=== PATIENT | female | born 1985 | race Caucasian/White ===

== ENCOUNTER 2018-03-09 07:54 | Inpatient (IN) | payer OTHER ==
[~2018-03-09] VITALS: Ht 152.4 cm; Wt 91.2 kg
[2018-03-09] VITALS (34 sets, daily range): BP systolic 107–173; BP diastolic 69–96
[2018-03-09] MEDS ORDERED: TYLENOL325 M2 PO (08:23)
[2018-03-09] MEDS ORDERED: PRENATAL TABLE1 EAC3 PO (08:23)
[2018-03-09] MEDS ORDERED: IRON18 MG PO (08:24)
[2018-03-09 09:50] LABS: BASOPHIL (%) 0.2 % (0-1); EOSINOPHIL (%) 0.2 % (0-5); HEMATOCRIT 29.6 % (36.0-46.0); HEMOGLOBIN 10.1 G/DL (11.9-15.5); IMMATURE GRANULOCYTE (%) 0.4 % (0.0-0.7); LYMPHOCYTE (%) 2.7 % (15-42); LYMPHOCYTE COUNT 0.2 K/uL (1.0-2.8); MCH 29.7 PG (29.0-34.0); MCHC 34.1 G/DL (30.0-36.0); MCV 87.1 FL (83-99); MONOCYTE (%) 3.9 % (3-12); MONOCYTE COUNT 0.3 K/uL (0-0.8); NEUTROPHIL (%) 92.6 % (45-76); NEUTROPHIL COUNT 7.8 K/uL (1.8-6.4); PLATELET COUNT 260 K/uL (156-360); RBC DIS.WIDTH-CV 14.3 % (11.8-14.6); RBC DIS.WIDTH-SD 45.1 % (39-53); WHITE BLOOD COUNT 8.4 K/uL (4.1-10.2)
[2018-03-09 09:58] LABS: AMPHETAMINE NEGATIVE (500 ng/mL); BARBITURATES NEGATIVE (200 ng/mL); BENZODIAZEPINES NEGATIVE (150 ng/mL); BUPRENORPHINE NEGATIVE (10 ng/mL); COCAINE NEGATIVE (150 ng/mL); METHADONE NEGATIVE (200 ng/mL); METHAMPHETAMINE NEGATIVE (500 ng/mL); OPIATES (MORPHINE) NEGATIVE (100 ng/mL); OXYCODONE NEGATIVE (100 ng/mL); PHENCYCLIDINE NEGATIVE (25 ng/mL); PROPOXYPHENE NEGATIVE (300 ng/mL); THC CANNABINOIDS NEGATIVE (50 ng/mL); TRICYCLIC ANTIDEPRESSANTS NEGATIVE (300 ng/mL)
[2018-03-10] VITALS (16 sets, daily range): BP systolic 123–140; BP diastolic 59–90
[2018-03-11] VITALS (8 sets, daily range): BP systolic 106–142; BP diastolic 65–86
[2018-03-11 06:11] LABS: BASOPHIL (%) 0.1 % (0-1); EOSINOPHIL (%) 0.1 % (0-5); HEMATOCRIT 19.6 % (36.0-46.0); IMMATURE GRANULOCYTE (%) 0.5 % (0.0-0.7); LYMPHOCYTE COUNT 0.2 K/uL (1.0-2.8); MCH 28.9 PG (29.0-34.0); MCHC 33.2 G/DL (30.0-36.0); MCV 87.1 FL (83-99); MONOCYTE COUNT 0.4 K/uL (0-0.8); NEUTROPHIL (%) 93.3 % (45-76); NEUTROPHIL COUNT 9.9 K/uL (1.8-6.4); PLATELET COUNT 198 K/uL (156-360); RBC DIS.WIDTH-CV 14.6 % (11.8-14.6); RBC DIS.WIDTH-SD 46.2 % (39-53); WHITE BLOOD COUNT 10.6 K/uL (4.1-10.2)
[2018-03-11 06:13] LABS: HEMOGLOBIN 6.5 G/DL (11.9-15.5); RED BLOOD COUNT 2.25 M/uL (3.80-5.20)
[2018-03-11 09:13] LABS: BASOPHIL (%) 0.1 % (0-1); EOSINOPHIL (%) 0.2 % (0-5); HEMATOCRIT 19.2 % (36.0-46.0); IMMATURE GRANULOCYTE (%) 0.7 % (0.0-0.7); LYMPHOCYTE (%) 2.6 % (15-42); LYMPHOCYTE COUNT 0.2 K/uL (1.0-2.8); MCH 29.7 PG (29.0-34.0); MCHC 34.4 G/DL (30.0-36.0); MCV 86.5 FL (83-99); MONOCYTE (%) 4.1 % (3-12); MONOCYTE COUNT 0.4 K/uL (0-0.8); NEUTROPHIL (%) 92.3 % (45-76); NEUTROPHIL COUNT 8.5 K/uL (1.8-6.4); PLATELET COUNT 194 K/uL (156-360); RBC DIS.WIDTH-CV 14.6 % (11.8-14.6); RBC DIS.WIDTH-SD 45.6 % (39-53); RED BLOOD COUNT 2.22 M/uL (3.80-5.20); WHITE BLOOD COUNT 9.2 K/uL (4.1-10.2)
[2018-03-11 09:14] LABS: HEMOGLOBIN 6.6 G/DL (11.9-15.5)
[2018-03-11 20:16] LABS: HEMATOCRIT 21.1 % (36.0-46.0); HEMOGLOBIN 7.1 G/DL (11.9-15.5); MCH 29.3 PG (29.0-34.0); MCHC 33.6 G/DL (30.0-36.0); MCV 87.2 FL (83-99); PLATELET COUNT 225 K/uL (156-360); RBC DIS.WIDTH-CV 14.6 % (11.8-14.6); RED BLOOD COUNT 2.42 M/uL (3.80-5.20); WHITE BLOOD COUNT 10.4 K/uL (4.1-10.2)
[2018-03-12] VITALS (11 sets, daily range): BP systolic 111–139; BP diastolic 65–78
[2018-03-12 06:18] LABS: BASOPHIL (%) 0.1 % (0-1); EOSINOPHIL (%) 0.2 % (0-5); IMMATURE GRANULOCYTE (%) 0.7 % (0.0-0.7); LYMPHOCYTE (%) 1.9 % (15-42); LYMPHOCYTE COUNT 0.2 K/uL (1.0-2.8); MCH 28.8 PG (29.0-34.0); MCHC 32.6 G/DL (30.0-36.0); MCV 88.4 FL (83-99); MONOCYTE (%) 3.1 % (3-12); MONOCYTE COUNT 0.3 K/uL (0-0.8); NEUTROPHIL COUNT 8.1 K/uL (1.8-6.4); PLATELET COUNT 226 K/uL (156-360); RBC DIS.WIDTH-CV 14.7 % (11.8-14.6); RBC DIS.WIDTH-SD 47.6 % (39-53); RED BLOOD COUNT 2.15 M/uL (3.80-5.20); WHITE BLOOD COUNT 8.6 K/uL (4.1-10.2)
[2018-03-12 06:26] LABS: HEMOGLOBIN 6.2 G/DL (11.9-15.5)
[2018-03-12 17:44] LABS: HEMATOCRIT 21.4 % (36.0-46.0); HEMOGLOBIN 7.1 G/DL (11.9-15.5); MCH 28.7 PG (29.0-34.0); MCHC 33.2 G/DL (30.0-36.0); MCV 86.6 FL (83-99); PLATELET COUNT 234 K/uL (156-360); RBC DIS.WIDTH-CV 14.6 % (11.8-14.6); RBC DIS.WIDTH-SD 46.6 % (39-53); RED BLOOD COUNT 2.47 M/uL (3.80-5.20)
[2018-03-13] VITALS (7 sets, daily range): BP systolic 109–142; BP diastolic 61–90
[2018-03-13 05:52] LABS: HEMATOCRIT 18.2 % (36.0-46.0); MCH 28.7 PG (29.0-34.0); MCV 87.1 FL (83-99); PLATELET COUNT 213 K/uL (156-360); RBC DIS.WIDTH-CV 14.7 % (11.8-14.6); RBC DIS.WIDTH-SD 47.2 % (39-53); RED BLOOD COUNT 2.09 M/uL (3.80-5.20); WHITE BLOOD COUNT 5.1 K/uL (4.1-10.2)
[2018-03-13 10:19] LABS: ALBUMIN 2.4 G/DL (3.2-4.8); ALKALINE PHOSPHATASE 112 IU/L (3-129); ALT (GPT) 12 IU/L (3-49); AST (GOT) 16 IU/L (2-34); CHLORIDE 106 MEQ/L (99-109); CREATININE 0.7 MG/DL (0.6-1.3); GFR ESTIMATE (CALCULATED) > 59 mL/min/; GLUCOSE 119 mg/dL (70-99); LACTATE DEHYDROGENASE 201 IU/L (20-246); POTASSIUM 3.7 MEQ/L (3.7-5.4); SODIUM 138 MEQ/L (136-147); TOTAL BILIRUBIN 0.2 MG/DL (0.0-1.0); TOTAL PROTEIN 4.7 G/DL (6.4-8.3); UREA NITROGEN (BUN) 8 mg/dL (9-23); URIC ACID 5.7 mg/dL (3.1-9.2)
[2018-03-13 12:04] LABS: UR CREATININE CONCENTRATION 44.5 MG/DL
[2018-03-13 20:00] LABS: HEMATOCRIT 26.3 % (36.0-46.0); MCH 28.8 PG (29.0-34.0); MCHC 33.1 G/DL (30.0-36.0); MCV 87.1 FL (83-99); PLATELET COUNT 229 K/uL (156-360); RBC DIS.WIDTH-CV 14.4 % (11.8-14.6); RBC DIS.WIDTH-SD 45.7 % (39-53); WHITE BLOOD COUNT 5.9 K/uL (4.1-10.2)
[2018-03-13 20:10] LABS: HEMOGLOBIN 8.7 G/DL (11.9-15.5); RED BLOOD COUNT 3.02 M/uL (3.80-5.20)
[2018-03-14] MEDS ORDERED: BACTRIM,SEPT1 TABLET PO (07:53)
[2018-03-14] MEDS ORDERED: FERROUS SULFAT325 MG PO (07:53)
[2018-03-14] MEDS ORDERED: DOCUSATE SODIU100 MG PO (07:53)
[2018-03-14] MEDS ORDERED: ENDOCET 5-3251 EACH PO (07:53)
[2018-03-14] MEDS ORDERED: IBUPROFEN800 MG PO (07:53)
[2018-03-14 08:05] VITALS: BP 142/88
[2018-03-14 08:13] VITALS: BP 139/84
[2018-03-14 09:29] LABS: BASOPHIL (%) 0.2 % (0-1); EOSINOPHIL (%) 1.3 % (0-5); EOSINOPHIL COUNT 0.1 K/uL (0-0.3); HEMOGLOBIN 8.9 G/DL (11.9-15.5); IMMATURE GRANULOCYTE (%) 1.1 % (0.0-0.7); LYMPHOCYTE (%) 4.3 % (15-42); LYMPHOCYTE COUNT 0.3 K/uL (1.0-2.8); MCH 29.9 PG (29.0-34.0); MCHC 34.2 G/DL (30.0-36.0); MCV 87.2 FL (83-99); MONOCYTE (%) 6.2 % (3-12); MONOCYTE COUNT 0.4 K/uL (0-0.8); NEUTROPHIL (%) 86.9 % (45-76); NEUTROPHIL COUNT 5.5 K/uL (1.8-6.4); PLATELET COUNT 260 K/uL (156-360); RBC DIS.WIDTH-CV 14.6 % (11.8-14.6); RBC DIS.WIDTH-SD 46.7 % (39-53); RED BLOOD COUNT 2.98 M/uL (3.80-5.20); WHITE BLOOD COUNT 6.3 K/uL (4.1-10.2)
[2018-03-14 10:36] VITALS: BP 143/86
== END 2018-03-14 11:53 | disposition home or self-care (01) | DRG 765 ==
LOC: LDRP-OP 07:54 → 2WEST 07:55 → LDRP-OP 17:19 → 2WEST 03-10 16:55 → LDRP-OP 04-16 16:09
PROVIDERS: Advanced Practice Midwife; Obstetrics & Gynecology
DX: O40.3XX0 Polyhydramnios, third trimester, not applicable or unspecified (principal); Z3A.39 39 weeks gestation of pregnancy; Z37.0 Single live birth; O24.420 Gestational diabetes mellitus in childbirth, diet controlled; O75.3 Other infection during labor; O99.02 Anemia complicating childbirth; D62 Acute posthemorrhagic anemia; O99.214 Obesity complicating childbirth; E66.9 Obesity, unspecified; O64.8XX0 Obstructed labor due to other malposition and malpresentation, not applicable or unspecified; O33.9 Maternal care for disproportion, unspecified; R03.0 Elevated blood-pressure reading, without diagnosis of hypertension; M79.601 Pain in right arm; M25.519 Pain in unspecified shoulder; R50.82 Postprocedural fever; N71.9 Inflammatory disease of uterus, unspecified; Z87.891 Personal history of nicotine dependence
CPT/HCPCS: 71046; 76705; 80053; 82570; 82948; 83615; 84156; 84550; 85025; 85025 91; 85027; 86850; 86900; 86901; 86920; 87040; 87077; 87086; 87186; 88307; C1755; G0378; J0131; J0595; J0690; J1170; J1580; J1885; J2590; J3010; J7050; J7120; P9016; S0020